=== PATIENT | female | born 1965 ===

== ENCOUNTER 2017-01-13 17:42 | Emergency (ER) | payer OTHER ==
[2017-01-13 18:04] VITALS: O2SAT 99
--- NOTE | 2017-01-13 18:28 | CT ---
PROCEDURE: CT HEAD WITHOUT CONTRAST. HISTORY: HEADACHE COMPARISON: Noncontrast head CT performed 10/17/15 TECHNIQUE: Axial computed tomography images were obtained through the head/brain without intravenous contrast. Radiation dose: Total exam DLP = 853.33 mGy-cm. This CT exam was performed using one or more of the following dose reduction techniques: Automated exposure control, adjustment of the mA and/or kV according to patient size, and/or use of iterative reconstruction technique. FINDINGS: HEMORRHAGE: No intracranial hemorrhage. BRAIN: No mass effect or edema. The matos-white matter differentiation appears intact. Please note that MRI with diffusion imaging is more sensitive in the detection of acute ischemic event. VENTRICLES: No hydrocephalus. CALVARIUM: Unremarkable. PARANASAL SINUSES: Unremarkable as visualized. No significant inflammatory changes. MASTOID AIR CELLS: Unremarkable as visualized. No inflammatory changes. OTHER FINDINGS: None. IMPRESSION: No acute intracranial pathology identified.
--- NOTE | 2017-01-13 20:11 | C.PDOC ---
History Of Present Illness Pt c/o right sided headache. Time Seen by Provider: 01/13/17 18:36 Chief Complaint (Nursing): Headache History Per: Patient Onset/Duration Of Symptoms: Days (1) Current Symptoms Are (Timing): Still Present Severity: Moderate Quality: "Pain" Additional History Per: Prior Records Past Medical History Reviewed: Historical Data, Nursing Documentation, Vital Signs Vital Signs: Last Vital Signs Temp 98.1 F 01/13/17 17:54 Pulse 67 01/13/17 17:54 Resp 18 01/13/17 17:54 BP 154/67 H 01/13/17 17:54 Pulse Ox 99 01/13/17 17:54 - Medical History PMH: Back Problems, Depression, Diabetes Family History: States: Unknown Family Hx - Social History Hx Tobacco Use: No Hx Alcohol Use: No Hx Substance Use: No - Immunization History Hx Tetanus Toxoid Vaccination: No Hx Influenza Vaccination: No Hx Pneumococcal Vaccination: No Review Of Systems Except As Marked, All Systems Reviewed And Found Negative. Constitutional: Negative for: Fever, Weakness ENT: Positive for: Ear Pain (right), Nose Congestion (?), Throat Pain (right). Negative for: Ear Discharge Cardiovascular: Negative for: Chest Pain Respiratory: Negative for: Shortness of Breath Gastrointestinal: Negative for: Nausea, Vomiting, Abdominal Pain Musculoskeletal: Positive for: Neck Pain (right) Skin: Negative for: Rash Neurological: Positive for: Headache (right). Negative for: Weakness, Numbness , Incoordination, Change in Speech, Confusion, Seizures, Altered Mental Status, Dizziness Physical Exam - Physical Exam Appears: Non-toxic, No Acute Distress Skin: Normal Color, Warm, Dry, No Rash Head: Atraumatic, Normacephalic Eye(s): bilateral: Normal Inspection, PERRL, EOMI Ear(s): Bilateral: Normal Oral Mucosa: Moist, No Drooling, No Trismus Tongue: Normal Appearing Throat: Normal Neck: Normal ROM, Supple Cardiovascular: Rhythm Regular Respiratory: Normal Breath Sounds, No Accessory Muscle Use Gastrointestinal/Abdominal: Soft, No Tenderness Back: No CVA Tenderness Extremity: Normal ROM Neurological/Psych: Oriented x3, Normal Motor, Normal Sensation ED Course And Treatment O2 Sat by Pulse Oximetry: 99 Pulse Ox Interpretation: Normal - CT Scan/US CT head Other Rad Studies (CT/US): Read By Radiologist, Radiology Report Reviewed CT/US Interpretation: IMPRESSION: No acute intracranial pathology identified. Reassessment Condition: Improved Disposition Counseled Patient/Family Regarding: Studies Performed, Diagnosis, Need For Followup, Rx Given - Disposition Referrals: [facility] at [facility] [Outside] Disposition: HOME/ ROUTINE Disposition Time: 20:25 Condition: IMPROVED Additional Instructions: Follow up in the clinic for further evaluation and treatment. Return to the ER if you develop fever, vomiting, redness, swelling, worsening of symptoms or if you have any other concerns. Prescriptions: Amoxicillin/Clavulanate [Augmentin 875 MG-125 MG] 1 tab PO BID #14 tab Ibuprofen [Motrin Tab] 600 mg PO TID PRN #15 tab PRN Reason: Pain, Moderate (4-7) Instructions: General Headache (ED) Print Language: WALLISIAN - Clinical Impression Clinical Impression: Headache, Throat pain
[2017-01-13 21:04] VITALS: BP 124/79; PULSE 75; RESP 16; TEMP 98.3
== END 2017-01-13 21:03 | disposition home or self-care (01) ==
LOC: C.ER 17:42
DX: R51 Headache (principal); R07.0 Pain in throat
CPT/HCPCS: 70450; 87070; 87430; 96372; 99284; J1885

== ENCOUNTER 2017-01-14 03:57 | Emergency (ER) | payer OTHER ==
--- NOTE | 2017-01-14 05:24 | C.PDOC ---
History Of Present Illness Patient is a 51 year old female who presents to the ER with a complaint of ear pain and headache. Patient was seen earlier today in the ER and had a normal head ct and was given Rx for motrin and augmentin but has not filled them. Patient complaining of recurrent pain; denies fever, weakness, or numbness. Time Seen by Provider: 01/14/17 04:23 Chief Complaint (Nursing): ENT Problem History Per: Patient History/Exam Limitations: no limitations Onset/Duration Of Symptoms: Hrs Current Symptoms Are (Timing): Still Present Recent travel outside of the [place]: No Past Medical History Reviewed: Historical Data, Nursing Documentation, Vital Signs Vital Signs: Last Vital Signs Temp 97.3 F L 01/14/17 05:38 Pulse 62 01/14/17 05:38 Resp 18 01/14/17 05:38 BP 126/88 01/14/17 05:38 Pulse Ox 99 01/14/17 05:56 - Medical History PMH: Back Problems, Depression, Diabetes Surgical History: No Surg Hx Family History: States: Unknown Family Hx - Social History Hx Tobacco Use: No Hx Alcohol Use: No Hx Substance Use: No - Immunization History Hx Tetanus Toxoid Vaccination: No Hx Influenza Vaccination: No Hx Pneumococcal Vaccination: No Review Of Systems Constitutional: Negative for: Fever ENT: Positive for: Ear Pain Neurological: Positive for: Headache. Negative for: Weakness, Numbness Physical Exam - Physical Exam Appears: Non-toxic, No Acute Distress Skin: Normal Color, Warm, Dry Head: Atraumatic, Normacephalic Eye(s): bilateral: Normal Inspection, PERRL, EOMI Ear(s): Bilateral: Normal Oral Mucosa: Moist Throat: Normal, No Erythema Neck: Normal, Supple Chest: No Tenderness Cardiovascular: Rhythm Regular, No Murmur Neurological/Psych: Oriented x3, Normal Speech, Normal Cognition, Normal Motor, Normal Sensation ED Course And Treatment O2 Sat by Pulse Oximetry: 99 (Room air) Pulse Ox Interpretation: Normal Progress Note: Motrin administered. Reassessment Condition: Improved (Pt advised to fill out and take meds) Disposition Counseled Patient/Family Regarding: Diagnosis, Need For Followup - Disposition Disposition: HOME/ ROUTINE Disposition Time: 05:22 Condition: STABLE Additional Instructions: Fill out medictions given yesterday Bed rest Follwo up in clinic Return to ER if worse Print Language: TUVALUAN - Clinical Impression Clinical Impression: Headache, Throat pain - Scribe Statement The provider has reviewed the documentation as recorded by the Scribjose Smallwood All medical record entries made by the Lopezibjose were at my direction and personally dictated by me. I have reviewed the chart and agree that the record accurately reflects my personal performance of the history, physical exam, medical decision making, and the department course for this patient. I have also personally directed, reviewed, and agree with the discharge instructions and disposition.
[2017-01-14 05:42] VITALS: BP 126/88; PULSE 62; RESP 18; TEMP 97.3
[2017-01-14 05:55] VITALS: O2SAT 99
== END 2017-01-14 05:38 | disposition home or self-care (01) ==
LOC: C.ER 03:57
DX: R51 Headache (principal); R07.0 Pain in throat

== ENCOUNTER 2018-01-02 14:58 | Emergency (ER) | payer SELFPAY ==
[2018-01-02 15:06] VITALS: BMI 33.0
[2018-01-02 15:09] VITALS: TEMP 98.7
[2018-01-02] MEDS ORDERED: Sodium Chloride 0.9% 1,000 ML IV ONE (15:44)
[2018-01-02 15:52] LABS: SQUAMOUS EPITHIAL < 1 /hpf (0-5); URINE BILIRUBIN NEGATIVE (NEGATIVE); URINE BLOOD NEGATIVE (NEGATIVE); URINE CLARITY Clear (Clear); URINE COLOR Yellow (YELLOW); URINE GLUCOSE (UA) NORMAL (Normal); URINE LEUKOCYTE ESTERASE NEG Leu/uL (Negative); URINE PROTEIN NEGATIVE (NEGATIVE); URINE UROBILINOGEN NORMAL mg/dL (0.2-1.0)
[2018-01-02] MEDS ORDERED: Sodium Chloride 0.9% 1,000 ML ONE (15:57)
[2018-01-02 15:59] LABS: BASO # 0.1 K/uL (0.0-0.2); BASO % 0.7 % (0.0-2.0); EOS # 0.2 K/uL (0.0-0.7); EOS % 1.8 % (0.0-4.0); HEMOGLOBIN 13.1 g/dL (11.0-16.0); LYMPH % 34.8 % (20.0-40.0); MEAN CELL VOLUME 81.4 fL (81.0-99.0); MEAN CORPUSCULAR HEMOGLOBIN 27.9 pg (27.0-31.0); MEAN CORPUSCULAR HGB CONC 34.3 g/dL (33.0-37.0); MEAN PLATELET VOLUME 9.7 fL (7.2-11.7); MONO # 0.7 K/uL (0.0-0.8); MONO % 7.6 % (0.0-10.0); NEUT # 4.8 K/uL (1.8-7.0); NEUT % 55.1 % (50.0-75.0); NRBC % 0.1 % (0.0-2.0); RBC 4.7 Mil/uL (3.80-5.20); RED CELL DISTRIBUTION WIDTH 13.6 % (11.5-14.5); WHITE BLOOD COUNT 8.7 K/uL (4.8-10.8)
[2018-01-02 16:13] LABS: ALB/GLOB RATIO 1.3 (1.0-2.1); ALT/SGPT 49 U/L (9-52); AST/SGOT 36 U/L (14-36); BLOOD UREA NITROGEN 13 mg/dL (7-17); CALCIUM 8.9 mg/dl (8.6-10.4); GFR AFRICAN-AMERICAN > 60; GFR NON-AFRICAN AMERICAN > 60; LIPASE 109 U/L (23-300)
--- NOTE | 2018-01-02 16:31 | C.PDOC ---
History Of Present Illness 52 y/o female presents to the ED complaining of abdominal pain for 3 days. She states pain worsens with walking and is described as sharp. Pain is associated with frequent urination and dark colored urine. Patient denies nausea, vomiting , diarrhea, fever, hematuria, vaginal bleeding/discharge. Time Seen by Provider: 01/02/18 15:11 Chief Complaint (Nursing): Female Genitourinary History Per: Patient History/Exam Limitations: no limitations Onset/Duration Of Symptoms: Days Current Symptoms Are (Timing): Still Present Severity: Mild Past Medical History Reviewed: Historical Data, Nursing Documentation, Vital Signs Vital Signs: Last Vital Signs Temp 98.7 F 01/02/18 16:36 Pulse 60 01/02/18 16:36 Resp 20 01/02/18 16:36 BP 134/76 01/02/18 16:36 Pulse Ox 98 01/02/18 18:33 - Medical History PMH: Back Problems, Depression, Diabetes Family History: States: No Known Family Hx - Social History Hx Tobacco Use: No Hx Alcohol Use: No Hx Substance Use: No - Immunization History Hx Tetanus Toxoid Vaccination: No Hx Influenza Vaccination: No Hx Pneumococcal Vaccination: No Review Of Systems Constitutional: Negative for: Fever Gastrointestinal: Positive for: Abdominal Pain. Negative for: Nausea, Vomiting , Diarrhea Genitourinary: Positive for: Frequency. Negative for: Dysuria, Hematuria, Vaginal Discharge, Vaginal Bleeding Skin: Negative for: Rash Physical Exam - Physical Exam Appears: Well, Non-toxic, No Acute Distress Skin: Normal Color, Warm, Dry Eye(s): bilateral: Normal Inspection Oral Mucosa: Moist Neck: Supple Cardiovascular: Rhythm Regular Respiratory: Normal Breath Sounds, No Rales, No Rhonchi, No Wheezing Gastrointestinal/Abdominal: Bowel Sounds, Soft, Tenderness (Mild generalized abdominal tenderness to palpation ), No Guarding, No Rebound Back: Normal Inspection, No CVA Tenderness Extremity: Bilateral: Atraumatic, Normal Color And Temperature, Normal ROM Neurological/Psych: Oriented x3 ED Course And Treatment - Laboratory Results Result Diagrams: 01/02/18 15:55 01/02/18 15:55 O2 Sat by Pulse Oximetry: 98 (RA) Pulse Ox Interpretation: Normal - Other Rad abd flat plate X-Ray: Viewed By Me, Read By Radiologist Interpretation: Accession No. : [id number]. Patient Name / ID : LAUREN OATES / [id number]. Exam Date : 01/02/2018 16:09:58 ( Approved ). Study Comment : Sex / Age : F / 52Y. Creator : Ilya Laurent MD. Dictator : Ilya Laurent MD. Nursery Worker : Railway Track Plant Operator : Ilya Laurent MD. Approver2 : Report Date : 01/02/2018 16:29:51. My Comment : . HISTORY: pain. COMPARISON: No prior. FINDINGS: BOWEL: Normal. No obstruction. No free air. BONES: Normal. OTHER FINDINGS: None. IMPRESSION: No active disease. Progress Note: Blood work, UA ordered and reviewed. Abdominal Xray ordered and reviewed. Patient given IV NS bolus. Reevaluation Time: 16:40 Reassessment Condition: Improved (Patient reassessed, is resting comfortably, in no current distress or pain. On exam, abdomen is soft and nontender. Blood work, UA, Upreg ordered and reviewed - unremarkable. Patient is well appearing , with normal vitals and physical exam. Will discharge home, Rx for pepcid given. Patient instructed to follow up with PMD/clinic in 1-2 days. She understands she should return to ED if symptoms worsen.) Disposition Counseled Patient/Family Regarding: Diagnosis, Need For Followup, Rx Given - Disposition Referrals: [facility] [Outside] Disposition: HOME/ ROUTINE Disposition Time: 16:30 Condition: STABLE Additional Instructions: FOLLOW UP WITH MEDICAL CLINIC IN 1-2 DAYS USE MEDICATION NEEDED DRINK PLENTY OF FLUIDS RETURN TO EMERGENCY ROOM IF SYMPTOMS WORSEN SEGUIMIENTO CON CLNICA MDICA EN 1-2 WHITMAN USE MEDICAMENTOS SEGN SEA NECESARIO BEBER MUCHO LQUIDO REGRESE AL CASTILLO DE EMERGENCIA SI LOS SNTOMAS EMPEORAN Prescriptions: Famotidine [Pepcid] 20 mg PO BID PRN #15 tab PRN Reason: abdominal Instructions: Stomach Ache and Stomach Upset Forms: [employer] (Syriac) Print Language: FAROESE - POA Present On Arrival: None - Clinical Impression Clinical Impression: Abdominal pain - Scribe Statement The provider has reviewed the documentation as recorded by the Scribe (Kendal Moralez) Provider Attestation: All medical record entries made by the Scribe were at my direction and personally dictated by me. I have reviewed the chart and agree that the record accurately reflects my personal performance of the history, physical exam, medical decision making, and the department course for this patient. I have also personally directed, reviewed, and agree with the discharge instructions and disposition.
[2018-01-02 16:36] VITALS: BP 134/76; PULSE 60; RESP 20
[2018-01-02 18:31] VITALS: O2SAT 98
== END 2018-01-02 16:40 | disposition home or self-care (01) ==
LOC: C.ER 14:58
DX: R10.9 Unspecified abdominal pain (principal); E11.9 Type 2 diabetes mellitus without complications
CPT/HCPCS: 74019; 80053; 81001; 83690; 85025; 87086; 96360; 99285; J7030

== ENCOUNTER 2018-04-26 18:51 | Emergency (ER) | payer MEDICAID, OTHER ==
[2018-04-26 18:52] VITALS: BMI 33.0
[2018-04-26 19:08] VITALS: BP 132/81; PULSE 76; RESP 18; TEMP 99.4; O2SAT 97
--- NOTE | 2018-04-26 19:49 | C.PDOC ---
History Of Present Illness 52 year old female presents to the ED c/o left lower gun pain and swelling since yesterday. Patient reports she has not seen a dentist for the past 2 years. Patient denies fever, chills, nausea, vomit, SOB, difficulty swallowing, trauma, injury, fall. Time Seen by Provider: 04/26/18 19:17 Chief Complaint (Nursing): Dental Pain History Per: Patient History/Exam Limitations: no limitations Onset/Duration Of Symptoms: Days Current Symptoms Are (Timing): Still Present Quality: Positive for: "Pain" Recent travel outside of the [place]: No Additional History Per: Patient Past Medical History Reviewed: Historical Data, Nursing Documentation, Vital Signs Vital Signs: Last Vital Signs Temp 99.4 F 04/26/18 19:06 Pulse 76 04/26/18 19:06 Resp 18 04/26/18 19:06 BP 132/81 04/26/18 19:06 Pulse Ox 97 04/26/18 19:06 - Medical History PMH: Back Problems, Depression, Diabetes Denies: Hepatitis, HIV, HTN, Seizures, Sexually Transmitted Disease Surgical History: No Surg Hx Family History: States: Unknown Family Hx - Social History Hx Tobacco Use: No Hx Alcohol Use: No Hx Substance Use: No - Immunization History Hx Tetanus Toxoid Vaccination: No Hx Influenza Vaccination: No Hx Pneumococcal Vaccination: No Review Of Systems Constitutional: Negative for: Fever, Chills Eyes: Negative for: Vision Change ENT: Positive for: Mouth Pain, Mouth Swelling. Negative for: Throat Pain, Throat Swelling Respiratory: Negative for: Cough, Shortness of Breath Gastrointestinal: Negative for: Nausea, Vomiting Neurological: Negative for: Headache, Dizziness Physical Exam - Physical Exam Appears: Non-toxic, No Acute Distress Skin: Normal Color, Warm, Dry Head: Atraumatic, Normacephalic, Swelling (left submandibular ) Eye(s): bilateral: Normal Inspection, PERRL Oral Mucosa: Moist Tongue: No Swelling, Other (no tongue elevation) Lips: No Swelling, No Laceration Teeth: Caries (extensive ), Tender To Palpation (left pre molar area), Other (poor dental hygiene) Gingiva: Erythema (lower gum- premolar), Swelling (left pre molar area) Throat: Normal, No Erythema, No Exudate Neck: Normal ROM, Supple Neurological/Psych: Oriented x3, Normal Speech, Normal Cognition Gait: Steady ED Course And Treatment O2 Sat by Pulse Oximetry: 97 (ON RA) Pulse Ox Interpretation: Normal Progress Note: Plan: - Motrin 600 mg PO. - penicillin 500 mg PO. On reassessment, patient is resting comfortably, and is in no acute distress. Patient was instructed to follow up with Dentist in 1-2 days for further evaluation. Disposition Counseled Patient/Family Regarding: Diagnosis, Need For Followup, Rx Given - Disposition Referrals: Dental clinic, [facility] [Other] Disposition: HOME/ ROUTINE Disposition Time: 19:51 Condition: STABLE Additional Instructions: Selam las medicinas Sigue con yobany dentista Regresa si peor Prescriptions: Ibuprofen [Motrin Tab] 800 mg PO QID #20 tab Penicillin VK [Penicillin VK Tab] 2 tab PO BID #28 tab Instructions: Tooth Abscess (DC) Forms: [employer] (Welsh) Print Language: HUNGARIAN - Clinical Impression Clinical Impression: Dental caries, Dental abscess - PA / PATCHER HELPER / Resident Statement MD/DO has reviewed & agrees with the documentation as recorded. - Scribe Statement The provider has reviewed the documentation as recorded by the Scribjose Gaytan All medical record entries made by the Lopezibjose were at my direction and personally dictated by me. I have reviewed the chart and agree that the record accurately reflects my personal performance of the history, physical exam, medic al decision making, and the department course for this patient. I have also personally directed, reviewed, and agree with the discharge instructions and disposition.
== END 2018-04-26 20:04 | disposition home or self-care (01) ==
LOC: C.ER 18:51
DX: K04.7 Periapical abscess without sinus (principal); K02.9 Dental caries, unspecified